=== PATIENT | male | born 1995 | race African-American/Black ===

== ENCOUNTER 2021-01-17 09:05 | Emergency (ER) | payer BC, SELFPAY ==
[~2021-01-17] VITALS: Ht 190.5 cm; Wt 93.0 kg
[2021-01-17 09:13] VITALS: BP 116/65
--- NOTE | 2021-01-17 09:18 | NUR ---
C/O COUGH, FEVER, STYFFY NOSE X 1 WEEK. PMH: DENIES
--- NOTE | 2021-01-17 09:29 | NUR ---
COVID SWAB DONE
[2021-01-17] MEDS ORDERED: BENZ-196 PO (09:30)
[2021-01-17] MEDS ORDERED: FLUT0.0560 NS (09:30)
[2021-01-17 09:45] VITALS: BP 116/65
--- NOTE | 2021-01-17 09:45 | NUR ---
Patient discharged with v/s stable. Written and verbal after care instructions given and explained. Patient alert, oriented and verbalized understanding of instructions. Ambulatory with steady gait. All questions addressed prior to discharge. ID band removed. Patient advised to follow up with PMD. Rx of TESSALON PERLE & FLUTICASONE PROPIONATE given. Patient educated on indication of medication including possible reaction and side effects. Opportunity to ask questions provided and answered.
== END 2021-01-17 09:45 | disposition home or self-care (01) ==
LOC: MED 09:05
DX: B34.9 Viral infection, unspecified (principal); R09.81 Nasal congestion; Z20.822 Contact with and (suspected) exposure to COVID-19
CPT/HCPCS: 99283; U0003